=== PATIENT | male | born 1980 | race African-American/Black ===

== ENCOUNTER 2020-05-29 12:43 | Emergency (ER) | payer MEDICAID ==
[~2020-05-29] VITALS: Ht 185.4 cm; Wt 92.1 kg
[2020-05-29 12:54] VITALS: Ht 185.4 cm; Wt 92.1 kg
[2020-05-29 14:35] VITALS: BP 122/71
== END 2020-05-29 14:35 | disposition home or self-care (01) ==
LOC: ED 12:43
DX: R07.89 Other chest pain (principal); M25.511 Pain in right shoulder; M25.561 Pain in right knee; R44.1 Visual hallucinations